=== PATIENT | male | born 1985 | race African-American/Black ===

== ENCOUNTER 2018-04-11 11:54 | Emergency (ER) | payer SELFPAY ==
[~2018-04-11] VITALS: Ht 170.2 cm; Wt 91.4 kg
[~2018-04-11 11:54] MED LIST: LEVAQUIN750 MG PO; PROAIR HFA8.5 GM IH; no home
[2018-04-11 12:38] VITALS: BP 130/95
== END 2018-04-11 12:39 | disposition home or self-care (01) ==
LOC: EME 11:54
DX: M79.651 Pain in right thigh (principal); G89.29 Other chronic pain; Z18.89 Other specified retained foreign body fragments
CPT/HCPCS: 73552; 99281; 99283